=== PATIENT | female | born 1990 | race Caucasian/White ===

== ENCOUNTER 2019-01-03 13:08 | Inpatient (IN) | payer MEDICAID ==
[~2019-01-03] VITALS: Ht 162.6 cm; Wt 67.8 kg
[~2019-01-03 13:08] MED LIST: ROCURONIUM 50 MG INJ ONE
[2019-01-03 13:42] VITALS: Ht 162.6 cm; Wt 67.8 kg
[2019-01-03] MEDS ORDERED: MAGNESIUM SULFATE 4 GM/100 ML 100 ML ONE (13:45)
[2019-01-03] MEDS: LACTATED RINGER'S 1,000 ML IV SCH ×2 (13:56→21:50)
[2019-01-03] MEDS ORDERED: IBUPROFEN 600 MG TAB PO PRN (14:00)
[2019-01-03] MEDS ORDERED: BUTORPHANOL 2 MG INJ IV PRN (14:00)
[2019-01-03] MEDS ORDERED: METHYLERGONOVINE 0.2 MG INJ IM PRN ×2 (14:00→17:00)
[2019-01-03] MEDS ORDERED: MAGNESIUM SULFATE 4 GM/100 ML 100 ML IVPB ONE ×2 (14:00)
[2019-01-03] MEDS ORDERED: OXYTOCIN 30 UNITS/LR 500 ML IV SCH ×3 (14:00→17:00)
[2019-01-03] MEDS ORDERED: LIDOCAINE 1% (MPF) 30 ML INJ INJ PRN (14:00)
[2019-01-03] MEDS ORDERED: MISOPROSTOL 200 MCG TAB PR PRN ×2 (14:00→17:00)
[2019-01-03] MEDS ORDERED: CARBOPROST 250 MCG INJ IM PRN ×2 (14:00→17:00)
[2019-01-03] MEDS ORDERED: OXYTOCIN 30 UNITS/LR 500 ML IV PRN ×2 (14:00→17:00)
[2019-01-03] MEDS: MAGNESIUM SULFATE 20 GM/500 ML 500 ML IV SCH ×2 (14:12→22:29)
[2019-01-03] MEDS ORDERED: CEFAZOLIN 2 GM/50 ML (PMX) 50 ML IVPB SCH (17:00)
--- NOTE | 2019-01-03 17:46 | PREAC ---
Date/Time of Note Date/Time of Note DATE: 01/03/19 TIME: 17:45 Anesthesia Eval and Record Evaluation Time Pre-Procedure Interview DATE: 01/03/19 TIME: 17:45 Age 28 Sex female NPO: Other (ate at 4pm) Preoperative diagnosis severe preeclampsia Planned procedure c section Past Medical History Past Medical History: Includes Neuro: Other (MC formation type 1 ) : Other (preeclampsia ) Surgery & Anesthesia Issues No known issue Meds Anticoagulation: No Beta Tanja within 24 hr: No Reason Beta Tanja not given: Pt. not on B-Tanja Current Medications Magnesium Sulfate 500 ml @ 50 mls/hr Q10H IV Last administered on 01/03/19at 14:12; Admin Dose 50 MLS/HR; Start 01/03/19 at 14:00 Lactated Ringer's 1,000 ml @ 125 mls/hr Q8H IV Last administered on 01/03/19at 13:56; Admin Dose 125 MLS/HR; Start 01/03/19 at 13:50 Butorphanol Tartrate (Stadol) 2 mg Q2H PRN IV .PAIN; Start 01/03/19 at 14:00 Lidocaine (Xylocaine 1% (Mpf)) 30 ml ONCE PRN INJ .EPISIOTOMY; Start 01/03/19 at 14:00 Oxytocin/Lactated Ringer's 500 ml @ 500 mls/hr ONCE POST IV ; Start 01/03/19 at 14:00 Oxytocin/Lactated Ringer's 500 ml @ 125 mls/hr POST IV ; Start 01/03/19 at 14:00 Ibuprofen (Motrin) 600 mg ONCE PRN PO .PAIN 1-5; Start 01/03/19 at 14:00 Oxytocin/Lactated Ringer's 500 ml @ 0 mls/hr ONCE PRN IV .VAGINAL BLEEDING; Start 01/03/19 at 14:00 Methylergonovine Maleate (Methergine) 0.2 mg ONCE PRN IM .VAGINAL BLEEDING; Start 01/03/19 at 14:00 Carboprost Tromethamine (Hemabate) 250 mcg ONCE PRN IM .VAGINAL BLEEDING; Start 01/03/19 at 14:00 Misoprostol (Cytotec) 1,000 mcg ONCE PRN NC .VAGINAL BLEEDING; Start 01/03/19 at 14:00 Cefazolin Sodium/ Dextrose 50 ml @ 100 mls/hr ONCE IVPB ; Start 01/03/19 at 17: 00 Oxytocin/Lactated Ringer's 500 ml @ 125 mls/hr POST IV ; Start 01/03/19 at 17:00 Oxytocin/Lactated Ringer's 500 ml @ 0 mls/hr ONCE PRN IV .VAGINAL BLEEDING; Start 01/03/19 at 17:00 Methylergonovine Maleate (Methergine) 0.2 mg ONCE PRN IM .VAGINAL BLEEDING; Start 01/03/19 at 17:00 Carboprost Tromethamine (Hemabate) 250 mcg ONCE PRN IM .VAGINAL BLEEDING; Start 01/03/19 at 17:00 Misoprostol (Cytotec) 1,000 mcg ONCE PRN NC .VAGINAL BLEEDING; Start 01/03/19 at 17:00 Meds reviewed: Yes Allergies Coded Allergies: No Known Drug Allergies (Verified Allergy, Unknown, 01/03/19) Allergies Reviewed: Yes Labs/Studies Labs Reviewed: Reviewed by anesthesiologist Result Diagram: 01/03/19 1334 01/03/19 1334 Laboratory Tests 01/03/19 13:34 Blood Bank Test 01/03/19 13:34 Antibody Screen NEGATIVE Blood Type O POSITIVE Rh Immune Globulin Candidate NO test: N/A Pre-procedure Exam Airway: Adequate mouth opening, Adequate thyromental dist Mallampati: Mallampati IV Teeth: Normal Lung: Normal Heart: Normal ASA Physical Status ASA physical status: 3 Emergency: None Pre-operative Attestations Prior to commencing anesthesia and surgery, the patient was re-evaluated, there was verification of: *The patient's identity *The results of appropriate recent lab work and preoperative vital signs *The above evaluation not changing prior to induction *Anesthetic plan, risk benefits, alternative and complications discussed with patient/family; questions answered; patient/family understands, accepts and wishes to proceed. NATASHA MOY DO Jan 03, 2019 17:46
[2019-01-03] MEDS ORDERED: NALOXONE (0.4 MG/ML) INJ IV PRN (18:00)
[2019-01-03] MEDS ORDERED: HYDROmorphONE 0.5 MG/0.5 ML SYG IV PRN ×2 (18:00)
[2019-01-03] MEDS ORDERED: ZOLPIDEM 5 MG TAB PO PRN (18:00)
[2019-01-03] MEDS ORDERED: ONDANSETRON 4 MG INJ IV PRN (18:00)
[2019-01-03] MEDS ORDERED: DIPHENHYDRAMINE 50 MG INJ IV PRN (18:00)
[2019-01-03] MEDS ORDERED: KETOROLAC 30 MG INJ IV PRN (18:00)
[2019-01-03] MEDS ORDERED: FAMOTIDINE 20 MG INJ IV ONE (20:00)
[2019-01-03] MEDS ORDERED: CITRIC ACID/NA CITRATE 30 ML CUP PO ONE (20:00)
[2019-01-03] MEDS ORDERED: LABETALOL HCL 20MG INJ IV ONE (20:00)
[2019-01-03] MEDS ORDERED: METOCLOPRAMIDE 10 MG INJ IV ONE (20:00)
[2019-01-03] MEDS ORDERED: morphine SULFATE/PF (10 MG/10 ML) INJ ONE (20:40)
[2019-01-03] MEDS ORDERED: PHENYLephrine (100 MCG/ML) 5ML SYG ONE (20:41)
--- NOTE | 2019-01-03 20:49 | HP ---
Date/Time of Note Date/Time of Note DATE: 01/03/19 TIME: 20:44 OB - History Hx of Present Free Text/Dictation 28 -year-old 1 with single intrauterine at 37 weeks and 1 day with EVENS of 01/23/2019 seen in clinic today for visit, was noted to elevated blood pressure. She referred to hospital for further evaluation. She states good movement. She denies nausea, vomiting, shortness of breath, chest pain, headache, visual changes, vaginal bleeding or LOF. Risk factors: 1. 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 Blood Type: O+ Rubella: immune RPR/VDRL: Negative GBS Status: Negative HBsAG: Negative OB Admission Exam Vital Signs Vital Signs Blood pressure 165/98, pulse rate 72/minutes, respiratory rate 16/minutes, temperature 98.6 Physical Exam HEENT: WNL Heart: Rhythm Normal Lungs: Clear Abdomen: WNL Extremities: Normal Reflexes: Normal Cervical Dilatation: None Effacement: 0% Station: -3 Membranes: Intact Heart Rate: 130's Accelerations: Accelerations Present Decelerations: Variable Decelerations Varibility: Moderate Contractions on Admission: >10 Minutes Apart Last 72 hours Lab Results CBC & BMP 01/03/19 13:34 Liver Function Test 01/03/19 13:34 Alanine Aminotransferase (ALT/SGPT) 21 Albumin 2.9 L Alkaline Phosphatase 220 H Aspartate Amino Transf (AST/SGOT) 32 Direct Bilirubin 0.00 Total Protein 5.9 L OB Assessment/Plan Other plan: 28-year-old 1 with single intrauterine at 37 weeks and 1 day with preeclampsia with severe features and and unfavorable cervix. Route of delivery discussed in detail with patient and her . She ate a sandwich at 1600 today. The plan was delivery at least 6 hours after she ate or sooner if indicated. heart rate with variable deceleration and the patient had vaginal bleeding later. Patient transferred to operating room for - FHR: Category II - Continuous EFM, toco - CBC, blood type and screen, CMP, uric acid, U/A as noted above - Please see the orders - O+/Rubella: Immune - GBS: Negative The risk of delivery including but not limited to bleeding, infection, injury to other organs (bowel, bladder, ureter, vessels, nerves), injury to fetus, blood transfusion, blood transfusion related infection, risk of anesthesia, adhesion, needs for future , removal of uterus or any other indicated surgery was discussed with the patient and her family. She expressed understanding. All of her questions were answered. She signed the informed consent. PHYSICIAN'S VERIFICATION OF INFORMED CONSENT The patient and her family counseled regarding the procedure, its indications, risks, potential complications and alternatives and any questions were answered. Consent was obtained. PLANNED PROCEDURE/TREATMENT: delivery with possible using vacuum/forceps and any other indicated surgery PHYSICIAN'S VERIFICATION OF INFORMED CONSENT FOR BLOOD TRANSFUSION: There is a reasonable possibility that blood transfusion will be necessary as a result of the patient's procedure. I have discussed the following with the patient/patient's legal client relations representative: An explanation of the benefits and risks of the transfusion of blood or blood products and the possible alternatives. All questions have been answered to the patient's satisfaction. INFORMED CONSENT:The patient has been informed of: The nature of the proposed care, treatment, services, medications, interventions or procedures. Potential benefits, risks or side effects, including potential problems related to recuperation. The likelihood of achieving care treatment and service goals. Reasonable alternatives to the proposed care, treatment and service. The relevant risks, benefits and side effects related to alternatives, including the possible results of not receiving care, treatment and services. When indicated, any limitations on the confidentiality of information learned from or about the patient. If appropriate, the risks, benefits and alternatives of the drugs to be used for sedation/analgesia including moderate sedation. If appropriate, patient has been provided information on the risks, benefits and alternatives to the transfusion of blood and/or blood products. If appropriate, patient has been provided information regarding the [employer] [place] Blood Act. JADE BARR Jan 03, 2019 20:49
[2019-01-03] MEDS ORDERED: ETOMIDATE 20 MG INJ ONE (20:57)
[2019-01-03] MEDS ORDERED: SUCCINYLCHOLINE CHLORIDE 100 MG/5 ML SYG IV ONE (20:57)
[2019-01-03] MEDS ORDERED: LIDOCAINE 1% (MDV) 20 ML INJ ONE (20:57)
[2019-01-03] MEDS ORDERED: MIDAZOLAM 1 MG/ML 2 ML INJ ONE (20:59)
[2019-01-03] MEDS ORDERED: FENTAnyl 50 MCG/ML VIAL ONE (20:59)
[2019-01-03] MEDS ORDERED: DEXAMETHASONE 4 MG/ML 1 ML INJ ONE (21:12)
[2019-01-03] MEDS ORDERED: SUGAMMADEX SODIUM 200 MG/2 ML VIAL IV ONE (21:31)
[2019-01-03] MEDS ORDERED: FLUMAZENIL 0.5 MG INJ ONE (21:52)
--- NOTE | 2019-01-03 22:19 | PAC ---
Date/Time of Note Date/Time of Note DATE: 01/03/19 TIME: 22:18 Post-Anesthesia Notes Post-Anesthesia Note Last documented vital signs 2218 125/63 75 100% 18 98 Activity: WNL Respiratory function: WNL Cardiovascular function: WNL Mental status: Baseline Pain reasonably controlled: Yes Hydration appropriate: Yes Nausea/Vomiting absent: Yes NATASHA MOY DO Jan 03, 2019 22:19
[2019-01-03] MEDS ORDERED: LABETALOL 200 MG TAB ONE (22:39)
[2019-01-03] MEDS: LABETALOL 200 MG TAB PO SCH (22:48)
[2019-01-04] VITALS (21 sets, daily range): BP systolic 99–151; BP diastolic 57–91; PULSE 56–72; RESP 14–20
--- NOTE | 2019-01-04 00:15 | OPR ---
Operative Report Planned Procedure Procedure date Jan 04, 2019 Procedure(s) Primary low transverse delivery Performed by see signature line Canal Equipment Mechanic: MAGO CHAPIN MD Anesthesiologist: NATASHA MOY DO Pre-procedure diagnosis 28 years old 1 with single intrauterine at 37 weeks and 1 day with preeclampsia with severe features and possible placental abruption [id number] Anesthesia Type: Cnxuc1x spinal other (Spinal and general) Post-Procedure Post-procedure diagnosis 28 years old 1 with single intrauterine at 37 weeks and 1 day with preeclampsia with severe features and placental abruption Findings Live Baby [], Apgars [] and [], weight [], position [], [] presentation []cord. Estimated Blood Loss: 500 - 600 mls Specimen(s) none Grafts/Implant(s) none Complication(s) none Pt Condition post procedure: stable Disposition: PACU Procedure Description 1. Normal uterus, fallopian tubes and ovaries 2. Viable male in cephalic presentation. 3 at one minute and 7 in 5 minutes and 8 at 10 minutes. Weight: 5 pounds 2 ounces - 2315 g. Time of delivery: 21:03 3. Placenta with three vessel cord 4. Amniotic fluid - Clear INDICATION AND HISTORY: A 28 years old 1 with single intrauterine at 37 weeks and 1 day with preeclampsia with severe features and possible placental abruption. The risk of delivery including but not limited to bleeding, infection, injury to other organs (bowel, bladder, ureter, vessels, nerves), injury to fetus, blood transfusion, blood transfusion related infection, risk of anesthesia, adhesion, needs for future , removal of uterus or any other indicated surgery was discussed with the patient and her family. She expressed understanding. All of her questions were answered. She signed the informed consent. DESCRIPTION OF OPERATION: The patient was taken to the operating room, where she was identified and the procedure was verified. The patient received two gram of Ancef 30 minutes prior to surgery. Spinal anesthesia was placed. The patient placed in the dorsal supine position with a left tilt. The heart rate was 120 bpm. The patient was then prepped and draped in the normal sterile fashion. A Pfannenstiel skin incision was made and carried down to the fascia with knife. The fascia was incised in the midline and the fascial incision was carried laterally with knife. The superior portion of the fascial incision was then grasped with Mark clamps and tented up and dissected off the underlying rectus muscle with sharp dissection. The lower portion of the fascial incision was then made in a similar fashion. The rectus muscle was and the peritoneum was entered. The peritoneal incision was then stretched and an Shiraz retractor was inserted. Then, an incision was made in the lower uterine segment in a transverse fashion with a knife and extended bluntly. The was delivered atraumatically in cephalic presentation with the above findings. Vacuum was used to assist delivery. The umbilical cord was clamped and cut. The neonatology resuscitation team was present and the baby was handed to them. A cord blood sample was obtained for further evaluation. The placenta and membrane, which appeared normal were Removed. The uterus was exteriorized and cleared of all clot and debris. The uterus was then closed in a two layer fashion with 0-Monocryl. At the time of closure, hemostasis was noted. The gutters were irrigated. The peritoneum was reapproximated with 3-0 Vicryl. The muscle was reapproximated with 3-0 Vicryl. The fascia was approximated with 0- Vicryl in a running fashion. The subcutaneous tissue was re approximated with 3- 0 vicryl. The skin was closed with 4-0 Monocryl. All instruments, sponges and needle counts were correct x3. The patient tolerated the procedure well. She transferred to the recovery room in stable condition. JADE BARR Jan 04, 2019 00:15
[2019-01-04] MEDS: OXYTOCIN 30 UNITS/LR 500 ML IV SCH ×2 (01:33→08:04)
[2019-01-04] MEDS: DEXTROSE 5%-LR 1,000 ML IV SCH (01:33)
[2019-01-04] MEDS ORDERED: METHYLERGONOVINE 0.2 MG INJ IM PRN (02:00)
[2019-01-04] MEDS ORDERED: MISOPROSTOL 200 MCG TAB PR PRN (02:00)
[2019-01-04] MEDS ORDERED: OXYTOCIN 30 UNITS/LR 500 ML IV PRN (02:00)
[2019-01-04] MEDS: LABETALOL 200 MG TAB PO SCH ×3 (02:00→17:46)
[2019-01-04] MEDS ORDERED: CARBOPROST 250 MCG INJ IM PRN (02:00)
[2019-01-04] MEDS ORDERED: LANOLIN HPA 1 PKT TOP PRN (02:00)
[2019-01-04] MEDS ORDERED: METHYLERGONOVINE 0.2 MG TAB PO PRN (02:00)
[2019-01-04] MEDS: LACTATED RINGER'S 1,000 ML IV SCH ×2 (05:50→17:52)
[2019-01-04] MEDS: MAGNESIUM SULFATE 20 GM/500 ML 500 ML IV SCH ×2 (07:53→18:29)
[2019-01-04] MEDS: SENNA/DOCUSATE NA (8.6MG/50MG) TAB PO SCH ×2 (10:33→21:34)
--- NOTE | 2019-01-04 15:41 | QN ---
Documentation Comment POD#1 is table afebrile tolerates diet No VB +Flatus on MG Adequate urine VS stable BP WNL Gen NAD Abd soft NT ND Dressing to be removed Genitalia No blood at perineum --->Mg to be stopped 24 hrs after delivery --->Ambulation is recommended --->Discharge with precautions KELVIN SRIVASTAVA M.D. Jan 04, 2019 15:41
[2019-01-04] MEDS: IBUPROFEN 800 MG TAB PO SCH (22:30)
[2019-01-05] VITALS (11 sets, daily range): BP systolic 112–169; BP diastolic 55–99; PULSE 63–71; RESP 17–20
[2019-01-05] MEDS: IBUPROFEN 800 MG TAB PO SCH ×3 (06:08→21:59)
[2019-01-05] MEDS ORDERED: HYDROCODONE/APAP (5/325) TAB NGT PRN (11:00)
[2019-01-05] MEDS ORDERED: DIPHTH/TET/ACEL PERTUSS (ADULT) 0.5 ML VIAL IM* ONE (11:00)
[2019-01-05] MEDS: SENNA/DOCUSATE NA (8.6MG/50MG) TAB PO SCH ×2 (11:32→21:59)
[2019-01-05] MEDS ORDERED: HYDROCODONE/APAP (5/325) TAB PO PRN (12:00)
[2019-01-05] MEDS: HYDROCODONE/APAP (5/325) TAB PO SCH ×3 (12:00→21:59)
[2019-01-05] MEDS: LABETALOL 200 MG TAB PO SCH ×2 (12:47→21:58)
[2019-01-05] MEDS: LACTATED RINGER'S 1,000 ML IV SCH (13:50)
[2019-01-05] MEDS ORDERED: HYDROCODONE/APAP (5/325) TAB GTB SCH (14:00)
--- NOTE | 2019-01-05 15:31 | PN ---
Date/Time of Note Date/Time of Note DATE: 01/05/19 TIME: 15:25 OB Subjective Subjective Subjective POD#2 Patient is doing well. She denies nausea, vomiting, shortness of breath, chest pain, headache. She has been ambulating without difficulty, tolerating regular diet. Pain is well controlled on current medications OB Objective Objective Objective VS - Last 72 Hours, by Label Date Temp Pulse Resp B/P (MAP) Pulse Ox O2 O2 Flow FiO2 Time Delivery Rate 01/05/19 18 148/55 Room Air 12:30 (86) 01/05/19 18 152/90 Room Air 12:15 (110) 01/05/19 20 169/99 98 12:05 (122) 01/05/19 67 18 118/68 Room Air 11:31 (85) 01/05/19 98.8 71 18 115/66 Room Air 08:15 (82) 01/05/19 99.3 64 19 116/63 Room Air 03:35 (80) 01/05/19 98.9 66 19 112/69 Room Air 00:11 (83) 01/04/19 62 18 104/61 71 Room Air 20:45 (75) 01/04/19 98.6 65 18 110/59 98 Room Air 19:45 (76) 01/04/19 61 17 115/74 19:10 (88) 01/04/19 65 15 146/82 97 Room Air 18:10 (103) 01/04/19 60 14 140/81 Room Air 17:10 (100) 01/04/19 65 16 124/75 Room Air 16:10 (91) 01/04/19 97.6 72 14 133/70 Room Air 15:10 (91) 01/04/19 61 16 119/79 Room Air 14:10 (92) 01/04/19 62 16 122/74 Room Air 13:10 (90) 01/04/19 98.2 61 15 144/80 97 Room Air 12:10 (101) 01/04/19 56 16 104/62 Room Air 11:01 (76) 01/04/19 65 19 111/65 Room Air 10:06 (80) 01/04/19 62 18 99/57 (71) Room Air 09:05 01/04/19 99.1 63 17 110/64 98 Room Air 08:05 (79) 01/04/19 61 18 106/57 Room Air 06:30 (73) 01/04/19 63 20 117/71 Room Air 05:30 (86) 01/04/19 63 20 118/69 Room Air 04:40 (85) 01/04/19 98.4 61 18 144/80 97 Room Air 03:30 (101) 01/04/19 61 20 132/81 Room Air 02:30 (98) 01/04/19 67 20 148/86 Room Air 01:30 (106) 01/04/19 98.0 66 20 151/91 98 Room Air 00:30 (111) General: AAO X 3, comfortable, NAD, appropriate mood and affect. Heart: RRR +S1, +S2, no murmurs. Lungs: Clear to auscultation (B/L), no rales, rhonchi or wheezing. ABD: +BS. Soft, non-tender. Uterus 2 cm below umbilicus Incision: Clear, dry, intact. No erythema, drainage or induration. Flank: No CVA tenderness (B/L) LE: Mild edema. No clubbing, cyanosis, thigh or calf tenderness (B/L). Homans 'sign is negative OB Assessment/Plan Other plan: 28-year-old 1 para 1-0-0-1 with preeclampsia with severe features and placental abruption s/p primary delivery at 37 weeks and 1 day. POD#2 - AF, VSS - Baby is in NICU - Contraception methods with R/B/A/FR discussed - Continue care 2) Preeclampsia with severe features: She currently has no symptom. She is on labetalol 200 mg every 8 hours, continue same dose. JADE BARR Jan 05, 2019 15:31
[2019-01-05] MEDS: DEXTROSE 5%-LR 1,000 ML IV SCH (17:33)
[2019-01-06 04:00] VITALS: BP 123/68; PULSE 72; RESP 18
[2019-01-06] MEDS: LABETALOL 200 MG TAB PO SCH ×3 (06:46→22:06)
[2019-01-06] MEDS: HYDROCODONE/APAP (5/325) TAB PO SCH ×3 (06:47→22:08)
[2019-01-06] MEDS: IBUPROFEN 800 MG TAB PO SCH ×3 (06:47→22:07)
[2019-01-06] MEDS: SENNA/DOCUSATE NA (8.6MG/50MG) TAB PO SCH ×2 (09:21→21:30)
[2019-01-06 11:13] VITALS: BP 100/65; PULSE 80; RESP 18
[2019-01-06 16:54] VITALS: BP 118/64; PULSE 76; RESP 18
--- NOTE | 2019-01-06 18:43 | PN ---
Date/Time of Note Date/Time of Note DATE: 01/06/19 TIME: 18:40 OB Subjective Subjective Subjective POD#3 She denies nausea, vomiting, shortness of breath, chest pain, headache. She has been ambulating without difficulty, tolerating regular diet. Pain is well controlled on current medications Complains of rash and itching over her abdomen she denies any headache, blurred vision or epigastric pain or RUQ pain. Breast feeding, tries to pump her breasts OB Objective Objective Objective GA: A&O, NAD abdomen: Soft, Appropriate tenderness over the section incision noted There is some erythematous rash over the upper abdomen, Lungs: CTA Bilaterally CV: RRR extremities: + 1 Bilateral lower extremity edema, noted no, calf tenderness, no click. negative Bertha sign OB Assessment/Plan Other Assessment: 28-year-old 1 para 1-0-0-1 with preeclampsia with severe features and placental abruption s/p primary delivery at 37 weeks and 1 day. POD#3 - AF, VSS - Baby is in NICU - Contraception methods with R/B/A/FR discussed - Continue care 2) Preeclampsia with severe features:s/p magnesium x 24 hours after delivery. She currently has no symptom. She is on labetalol 200 mg every 8 hours, continue same dose. Routine post op care Possible DC home tomorrow VERITO FRANCO MD Jan 06, 2019 18:43
[2019-01-06 19:30] VITALS: BP 129/80; RESP 18
[2019-01-07 04:00] VITALS: BP 131/85; PULSE 82; RESP 19
[2019-01-07] MEDS: IBUPROFEN 800 MG TAB PO SCH ×2 (05:55→13:46)
[2019-01-07] MEDS: HYDROCODONE/APAP (5/325) TAB PO SCH ×4 (05:55→16:02)
[2019-01-07] MEDS: LABETALOL 200 MG TAB PO SCH ×2 (05:56→13:47)
[2019-01-07 08:45] VITALS: BP 127/72; PULSE 82; RESP 18
[2019-01-07] MEDS: SENNA/DOCUSATE NA (8.6MG/50MG) TAB PO SCH (08:51)
[2019-01-07] MEDS ORDERED: MEASLES,MUMPS,RUBELLA VACCINE INJ SC* ONE (09:00)
[2019-01-07] MEDS ORDERED: DIPHTH/TET/ACEL PERTUSS (ADULT) 0.5 ML VIAL IM* ONE (09:00)
--- NOTE | 2019-01-07 14:58 | DS ---
Date/Time of Note Date/Time of Note DATE: 01/07/19 TIME: 14:56 Obstetrical Discharge Record Final Diagnosis Final Diagnosis: Term delivered Other Final Diagnosis preeclampsiai abruptio placenta Section Section: Primary Complications Augmentation: No Induction: No Rupture of Membranes: No Condition on Discharge Physical Assessment Last Vitals: normotensive afebrile Voiding: Yes Bowel Movement: Yes Breast: Soft, non-tender Fundus: Firm Abdomen and Incision: soft wound dry Episiotomy: n/a Calf Tenderness: No Patient Condition: Stable MAGNOLIA GARCIA MD Jan 07, 2019 14:58
--- NOTE | 2019-01-07 15:02 | PD.PPDC ---
PLASTER MAKER Discharge Instruction Diagnosis Meili3Lx Final Diagnosis: Zmkgd2v IUP 37w2d preclampsia Condition [id number] Patient Condition: Qqwnl8l Stable Diet Wdyuo2Cx Diet: Wiexv4f Resume Regular Diet Activity/Restrictions Lbujw4Hg Activity: Zxcsk9r May Shower Pvayq7Hv Restrictions: Yotaa0v No Exercising No Lifting Minimize Stair-climbing No Sexual Activity Nothing in the Vagina No [place] No Tampons, douche Wound/Drain Care Instructions [id number] Wound/Drain Care Instructions: Kenme7r Wash with soap and water Keep clean and dry Follow-up Follow-up with Physician: 2, Day/Days Provider Information: for blood pressure check with PMD in 2days Postop check for wound in 2 weeks Return to clinic for Hapxa6Sx PLASTERER MAINTENANCE Instructions: Qhqwo8a Fever greater than 101 Chills Worsening abdominal pain Excessive Vaginal Bleeding More than 2 pads per hour Unable to tolerate diet Opjgs9Uo OB Instructions: Vttgr1w Breast Tenderness Depression Blurried Vision Headache Vzsgv1Sa Surgical Instructions: Uaqlo5t Incisional Drainage Incisional Redness MAGNOLIA GARCIA MD Jan 07, 2019 15:01
== END 2019-01-07 16:30 | disposition home or self-care (01) | DRG 788 ==
LOC: OBT 13:08 → L-D 13:09 → OBT 13:30 → L-D 20:37 → PP1 01-04 00:18
PROVIDERS: ADMIT Obstetrics & Gynecology; ATTEND Obstetrics & Gynecology
PROC: 10D00Z1 Extraction of Products of Conception, Low, Open Approach (ICD-10-PCS; principal; 2019-01-04)
DX: O14.14 Severe pre-eclampsia complicating childbirth (principal); O45.93 Premature separation of placenta, unspecified, third trimester; O76 Abnormality in fetal heart rate and rhythm complicating labor and delivery; R21 Rash and other nonspecific skin eruption; Z3A.37 37 weeks gestation of pregnancy; Z37.0 Single live birth
CPT/HCPCS: 36600; 76815; 76818; 80053; 81001; 82803; 83735; 84560; 85025; 85384; 85610; 85730; 86592; 86850; 86900; 86901; 86920; 87340; 88307; 90686; 90715; 99464; G0463; J0690; J1100; J2250; J2274; J2370; J2405; J2590; J2765; J3010; J3475; J7120; J7121

== ENCOUNTER 2019-01-08 19:46 | Inpatient (IN) | payer MEDICAID ==
[~2019-01-08] VITALS: Ht 163.8 cm; Wt 62.3 kg
[2019-01-08] MEDS ORDERED: MAGNESIUM SULFATE 4 GM/100 ML 100 ML IVPB ONE (20:00)
[2019-01-08] MEDS ORDERED: LABETALOL HCL 20MG INJ IV ONE (20:00)
[2019-01-08] MEDS ORDERED: ACETAMINOPHEN 325 MG TAB PO PRN ×2 (20:30→23:00)
[2019-01-08] MEDS ORDERED: ONDANSETRON 4 MG INJ IV PRN (20:30)
[2019-01-08 21:49] VITALS: Ht 163.8 cm; Wt 62.3 kg
[2019-01-08] MEDS ORDERED: MAGNESIUM SULFATE 4 GM/100 ML 100 ML IV STA (22:31)
[2019-01-08] MEDS ORDERED: CA GLUCONATE (GM) 10% 10ML INJ IV PRN (23:00)
[2019-01-08] MEDS ORDERED: HYDROCODONE/APAP (5/325) TAB PO ONE (23:00)
--- NOTE | 2019-01-08 23:01 | ERD ---
ER Documentation Chief Complaint Chief Complaint ELIJAH LEG SWEELING AND PAIN SINCE TODAY, HTN, HAD BABY 5DAYS AGO HPI Patient is a 28-year-old female with no medical problems who presents with bilateral lower extremity swelling. The patient had a done on January 03. She has headache, high blood pressure, and bilateral leg swelling. She has had this since discharge she says. She is a . Upon review of old medical records the patient one previous visit when she was admitted for her . She does not remember the name of her OB doctor. ROS All systems reviewed and are negative except as per history of present illness. Medications Home Meds No Active Prescriptions or Reported Meds Allergies Allergies: Coded Allergies: No Known Drug Allergies (Verified Allergy, Unknown, 01/03/19) PMhx/Soc Medical and Surgical Hx: pt denies Medical Hx History of Surgery: Yes () Hx Miscellaneous Medical Probl: No Hx Alcohol Use: No Hx Substance Use: No Hx Tobacco Use: No Smoking Status: Never smoker FmHx Family History: No diabetes Physical Exam Vitals Vital Signs Date Temp Pulse Resp B/P (MAP) Pulse Ox O2 O2 Flow FiO2 Time Delivery Rate 01/08/19 77 13 139/96 99 Room Air 20:20 (110) 01/08/19 99.2 100 21 177/101 100 19:49 (126) Physical Exam Const: No acute distress Head: Atraumatic Eyes: Normal Conjunctiva ENT: Normal External Ears, Nose and Mouth. Neck: Full range of motion. No meningismus. Resp: Clear to auscultation bilaterally Cardio: Regular rate and rhythm, no murmurs Abd: Soft, non tender, non distended. Normal bowel sounds Skin: No petechiae or rashes Back: No midline or flank tenderness Ext: 3+ pitting edema bilateral lower extremities Neur: Awake and alert Psych: Normal Mood and Affect Result Diagram: 01/08/19200201/08/192002 Results 24 hrs Laboratory Tests Test 01/08/19 20:03 01/08/19 20:05 White Blood Count 10.0 10^3/ul Red Blood Count 2.82 10^6/ul Hemoglobin 9.1 g/dl Hematocrit 27.1 % Mean Corpuscular Volume 96.1 fl Mean Corpuscular Hemoglobin 32.3 pg Mean Corpuscular Hemoglobin Concent 33.6 g/dl Red Cell Distribution Width 13.0 % Platelet Count 235 10^3/UL Mean Platelet Volume 9.1 fl Immature Granulocytes % 1.600 % Neutrophils % 67.1 % Lymphocytes % 24.8 % Monocytes % 4.6 % Eosinophils % 1.3 % Basophils % 0.6 % Nucleated Red Blood Cells % 0.0 /100WBC Immature Granulocytes # 0.160 10^3/ul Neutrophils # 6.7 10^3/ul Lymphocytes # 2.5 10^3/ul Monocytes # 0.5 10^3/ul Eosinophils # 0.1 10^3/ul Basophils # 0.1 10^3/ul Nucleated Red Blood Cells # 0.0 10^3/ul Sodium Level 138 mmol/L Potassium Level 3.9 mmol/L Chloride Level 109 mmol/L Carbon Dioxide Level 24 mmol/L Anion Gap 5 Blood Urea Nitrogen 10 mg/dl Creatinine 0.51 mg/dl Est Glomerular Filtrat Rate mL/min > 60 mL/min Glucose Level 81 mg/dl Calcium Level 8.7 mg/dl Total Bilirubin 0.2 mg/dl Direct Bilirubin 0.00 mg/dl Indirect Bilirubin 0.2 mg/dl Aspartate Amino Transf (AST/SGOT) 41 IU/L Alanine Aminotransferase (ALT/SGPT) 39 IU/L Alkaline Phosphatase 119 IU/L Total Protein 5.6 g/dl Albumin 3.0 g/dl Globulin 2.60 g/dl Albumin/Globulin Ratio 1.15 Lipase 41 U/L Urine Color STRAW Urine Clarity CLEAR Urine pH 8.0 Urine Specific [place] 1.009 Urine Ketones NEGATIVE mg/dL Urine Nitrite NEGATIVE mg/dL Urine Bilirubin NEGATIVE mg/dL Urine Urobilinogen NEGATIVE mg/dL Urine Leukocyte Esterase TRACE Clarissa/ul Urine Microscopic RBC 53 /HPF Urine Microscopic WBC 14 /HPF Urine Bacteria FEW /HPF Urine Hemoglobin 3+ mg/dL Urine Glucose NEGATIVE mg/dL Urine Total Protein 2+ mg/dl Current Medications Medications Dose Sig/Betsy Start Time Status Last (Trade) Ordered Route PRN Stop Time Admin Dose Reason Admin Labetalol 20 mg ONCE ONCE 01/08/19 DC 01/08/19 HCl IV 20:00 20:07 (Labetalol) 01/08/19 20:02 Magnesium 100 ml @ ONCE ONCE 01/08/19 01/08/19 Sulfate 25 mls/hr IVPB 20:00 20:11 3/16/19 23:59 Procedures/MDM Patient is a 28-year-old female presents with preeclampsia. The patient elevated blood pressure, bilateral lower extremity swelling, and headache. She was given labetalol 20 mg IV and magnesium 4 g IV. I spoke with Dr. Kruger who will admit the patient to the unit. Platelets and LFTs were normal and I doubt HELLP syndrome at this time. Critical Care: Time: 35 minutes excluding all billable procedures. Treatments/Evaluations: Close monitoring and treatment of unstable vital signs, cardiorespiratory, and neurologic status, while maintaining tight balance of fluid, respiratory, and cardiac interventions. Departure Diagnosis: Primary Impression: Preeclampsia Trimester: unspecified trimester Qualified Codes: O14.90 - Unspecified pre-eclampsia, unspecified trimester Condition: JULIA Mora MD Jan 08, 2019 23:01
[2019-01-08] MEDS: MAGNESIUM SULFATE 20 GM/500 ML 500 ML IV SCH (23:46)
[2019-01-08] MEDS: LABETALOL 200 MG TAB PO SCH (23:49)
[2019-01-08] MEDS: LACTATED RINGER'S 1,000 ML IV SCH (23:50)
--- NOTE | 2019-01-09 00:35 | HP ---
Date/Time of Note Date/Time of Note DATE: 01/09/19 TIME: 00:31 OB - History Hx of Present Free Text/Dictation 28-year-old 1 para 1001 with who had primary delivery on 01/03/2019 for preeclampsia with severe features. Her course was unremarkable and she discharged home in stable condition. She presented to emergency department last night with complaint of headache and severe lower extremities edema. Blood pressure in emergency department was 177/101, repeat blood pressure 180/103. 4 g magnesium sulfate and labetalol 20 mg IV given. Currently she denies nausea, vomiting, shortness of breath, chest pain, visual changes, vaginal bleeding or LOF. Chief Complaint: Headache and lower extremity edema : 1 Para: 1 Spontaneous : 0 Therapeutic : 0 Past Family/Social History * Past Medical, Surgical, Family and Obstetric Histories reviewed from chart. OB Admission Exam Vital Signs Vital Signs Vital Signs Date Temp Pulse Resp B/P (MAP) Pulse Ox O2 O2 Flow FiO2 Time Delivery Rate 01/08/19 98 18 151/83 100 Room Air 21:28 (105) 01/08/19 99.2 19:49 Physical Exam HEENT: WNL Heart: Rhythm Normal Lungs: Clear Abdomen: WNL Extremities: Normal Reflexes: Normal Last 72 hours Lab Results CBC & BMP 01/08/19 20:03 Liver Function Test 01/08/19 20:03 Alanine Aminotransferase (ALT/SGPT) 39 Albumin 3.0 L Alkaline Phosphatase 119 Aspartate Amino Transf (AST/SGOT) 41 Direct Bilirubin 0.00 Total Protein 5.6 L OB Assessment/Plan Other plan: 28-year-old 1 para 1001 status post delivery on 01/03/2019 with preeclampsia -CBC, CMP, uric acid, urinalysis performed as noted above -Strict intake/output -Magnesium sulfate 4 g IV and then 2g IV per protocol -She received 20 mg labetalol IV -Labetalol 200 mg every 8 hours ordered -Continue current management Admission and management discussed in detail with patient and her family. They expressed understanding, all of their questions answered. JADE BARR Jan 09, 2019 00:35
[2019-01-09] MEDS: LABETALOL 200 MG TAB PO SCH ×3 (06:13→21:54)
[2019-01-09] MEDS: LACTATED RINGER'S 1,000 ML IV SCH ×2 (07:03→16:55)
[2019-01-09] MEDS: FERROUS SULFATE (EC) 325 MG TAB PO SCH ×2 (08:58→21:54)
[2019-01-09] MEDS: DOCUSATE SODIUM 100 MG CAP PO PRN (08:58)
[2019-01-09] MEDS: PRENATAL VITAMIN PO SCH (08:58)
[2019-01-09] MEDS ORDERED: CYANOCOBALAMIN 1000 MCG INJ IM SCH (09:00)
--- NOTE | 2019-01-09 12:26 | PN ---
Date/Time of Note Date/Time of Note DATE: 01/09/19 TIME: 12:22 OB Subjective Subjective Subjective Admission date: 01/08/2019 Patient is doing well. She denies nausea, vomiting, shortness of breath, chest pain, headache. She has been ambulating without difficulty, tolerating regular diet. Pain is well controlled on current medications OB Objective Objective Objective VS - Last 72 Hours, by Label Date Temp Pulse Resp B/P (MAP) Pulse Ox O2 O2 Flow FiO2 Time Delivery Rate 01/08/19 98 18 151/83 100 Room Air 21:28 (105) 01/08/19 77 13 139/96 99 Room Air 20:20 (110) 01/08/19 99.2 100 21 177/101 100 19:49 (126) General: AAO X 3, comfortable, NAD, appropriate mood and affect. Heart: RRR +S1, +S2, no murmurs. Lungs: Clear to auscultation (B/L), no rales, rhonchi or wheezing. ABD: +BS. Soft, non-tender. Flank: No CVA tenderness (B/L) LE: Mod edema. No clubbing, cyanosis, thigh or calf tenderness (B/L). Homans 'sign is negative Laboratory Tests Test 01/08/19 20:03 01/08/19 20:05 01/09/19 05:35 White Blood Count 10.0 10^3/ul Red Blood Count 2.82 10^6/ul Hemoglobin 9.1 g/dl Hematocrit 27.1 % Mean Corpuscular Volume 96.1 fl Mean Corpuscular Hemoglobin 32.3 pg Mean Corpuscular 33.6 g/dl Hemoglobin Concent Red Cell Distribution Width 13.0 % Platelet Count 235 10^3/UL Mean Platelet Volume 9.1 fl Immature Granulocytes % 1.600 % Neutrophils % 67.1 % Lymphocytes % 24.8 % Monocytes % 4.6 % Eosinophils % 1.3 % Basophils % 0.6 % Nucleated Red Blood Cells % 0.0 /100WBC Immature Granulocytes # 0.160 10^3/ul Neutrophils # 6.7 10^3/ul Lymphocytes # 2.5 10^3/ul Monocytes # 0.5 10^3/ul Eosinophils # 0.1 10^3/ul Basophils # 0.1 10^3/ul Nucleated Red Blood Cells # 0.0 10^3/ul Sodium Level 138 mmol/L Potassium Level 3.9 mmol/L Chloride Level 109 mmol/L Carbon Dioxide Level 24 mmol/L Anion Gap 5 Blood Urea Nitrogen 10 mg/dl Creatinine 0.51 mg/dl Est Glomerular Filtrat > 60 mL/min Rate mL/min Glucose Level 81 mg/dl Uric Acid 6.1 mg/dl Calcium Level 8.7 mg/dl Total Bilirubin 0.2 mg/dl Direct Bilirubin 0.00 mg/dl Indirect Bilirubin 0.2 mg/dl Aspartate Amino 41 IU/L Transf (AST/SGOT) Alanine 39 IU/L Aminotransferase (ALT/SGPT) Alkaline Phosphatase 119 IU/L Total Protein 5.6 g/dl Albumin 3.0 g/dl Globulin 2.60 g/dl Albumin/Globulin Ratio 1.15 Lipase 41 U/L Urine Color STRAW Urine Clarity CLEAR Urine pH 8.0 Urine Specific [place] 1.009 Urine Ketones NEGATIVE mg/dL Urine Nitrite NEGATIVE mg/dL Urine Bilirubin NEGATIVE mg/dL Urine Urobilinogen NEGATIVE mg/dL Urine Leukocyte Esterase TRACE Clarissa/ul Urine Microscopic RBC 53 /HPF Urine Microscopic WBC 14 /HPF Urine Bacteria FEW /HPF Urine Hemoglobin 3+ mg/dL Urine Glucose NEGATIVE mg/dL Urine Total Protein 2+ mg/dl Magnesium Level 4.4 mg/dl OB Assessment/Plan Other plan: 28-year-old 1 para 1001 with preeclampsia. She had delivery for preeclampsia with severe features on 01/03/2019. She discharged home in stable condition. At the time of discharge her blood pressure where within normal. Last night her blood pressure was in the range of 177 [id number], she was admitted. Magnesium sulfate per protocol started. 1 dose of labetalol 20 mg IV given. Labetalol 200 mg every 8 hours started. Currently her blood pressure are controlled. Continue observation. She may discharge home tomorrow. Rx and instruction given. Follow up in 3 days and 1 week in clinic JADE BARR Jan 09, 2019 12:26
[2019-01-09 12:33] VITALS: BP 145/88; PULSE 78; RESP 20
[2019-01-09 15:49] VITALS: BP 133/83; PULSE 80; RESP 18
[2019-01-09] MEDS: MAGNESIUM SULFATE 20 GM/500 ML 500 ML IV SCH (19:34)
[2019-01-10] MEDS: LACTATED RINGER'S 1,000 ML IV SCH (04:14)
[2019-01-10] MEDS: LABETALOL 200 MG TAB PO SCH (06:09)
[2019-01-10 08:00] VITALS: BP 117/75; PULSE 77; RESP 18
[2019-01-10] MEDS: FERROUS SULFATE (EC) 325 MG TAB PO SCH (09:01)
[2019-01-10] MEDS: PRENATAL VITAMIN PO SCH (09:01)
[2019-01-10] MEDS: DOCUSATE SODIUM 100 MG CAP PO PRN (09:02)
--- NOTE | 2019-01-10 11:43 | QN ---
Documentation Comment Bps reviewed No Headache No blurry vision no epigastric pain VS stable Gen NAD Abd soft NT ND Incision is healing well --->Discharge with precautions --->Questions answered --->prescription is given --->Follow up with provider in 2 days KELVIN SRIVASTAVA M.D. Jan 10, 2019 11:43
== END 2019-01-10 12:20 | disposition home or self-care (01) | DRG 776 ==
LOC: E/R 19:46 → L-D 20:23 → UNDODISIN 01-10 12:20
PROVIDERS: ADMIT Obstetrics & Gynecology; ATTEND Obstetrics & Gynecology
DX: O14.95 Unspecified pre-eclampsia, complicating the puerperium (principal)
CPT/HCPCS: 36415; 80053; 81001; 83690; 83735; 84560; 85025; 96374; 96375; J3420; J3475; J7120